=== PATIENT | male | born 1995 | race Caucasian/White ===

== ENCOUNTER → 2016-10-04 | Outpatient (CLI) | payer OTHER ==
--- NOTE | 2016-10-04 07:59 | MR ---
EXAMINATION TYPE: MR brain wo/w con DATE OF EXAM: 10/04/2016 COMPARISON: CT brain February 05, 2015. HISTORY: other amnesia per order. Multiple sclerosis per patient. TECHNIQUE: Multiplanar, multisequence images of the brain and brainstem is performed without and with IV contras t, utilizing 18 mL intravenous MultiHance gadolinium contrast is administered intravenously. Demyeli nating disease protocol with additional Sagittal Flair sequence performed. FINDINGS: T2 Lesions Present : No Approximate Number of Lesions: N/A Locations Identified : N/A Size of Reference Lesion(s): N/A Enhancing Lesion(s) Present: N/A T1 Hypointense Lesion(s) Present: N/A Diffusion weighted images demonstrate no evidence of a recent infarct or other diffusion abnormality. There is no worrisome extra-axial fluid collection. The ventricular system and cisternal spaces ar e normal in size and appearance. The brain volume is age appropriate. Midline structures demonstrate normal morphology. The craniocervical junction appears within normal limits. Post contrast images demonstrate no abnormal enhancement. The dural venous sinuses appear pa tent. The visualized sinuses are clear and the globes are intact. IMPRESSION: Unremarkable study. No significant finding is seen to account for patient's symptoms.
== END | disposition home or self-care (01) ==
LOC: RADMRIMAIN 06:03
PROVIDERS: ATTEND Family Medicine
DX: R41.3 Other amnesia (principal)
CPT/HCPCS: 70553; A9577

== ENCOUNTER 2017-05-05 23:49 | Emergency (ER) | payer OTHER ==
[2017-05-05 23:54] VITALS: RESP 18
--- NOTE | 2017-05-06 00:55 | XR ---
EXAMINATION TYPE: XR chest 2V DATE OF EXAM: 05/06/2017 COMPARISON: 05/28/2014 HISTORY: Sore throat. Cough. TECHNIQUE: Frontal and lateral views of the chest are obtained. FINDINGS: Heart and mediastinum are normal. Lungs are clear. Diaphragm is normal. Bony thorax appear s normal. IMPRESSION: Normal chest. No change.
--- NOTE | 2017-05-06 01:19 | ED ---
ENT HPI - General Chief complaint: ENT Stated complaint: Sore Throat Time Seen by Provider: 05/06/17 00:08 Source: patient Mode of arrival: ambulatory Limitations: no limitations - History of Present Illness Initial comments: 22-year-old male patient presents to the emergency department today for evaluation of sore throat and cough 1 week. He states that his symptoms started 7 days ago and are not improving. He denies taking any medications for his symptoms. He denies any sick contacts. He denies any fevers or chills with this. He states that he has had frequent sore throats in the past. Patient denies any recent rash, fever, chills, shortness breath, chest pain, abdominal pain, nausea, vomiting, diarrhea, constipation, back pain, numbness, tingling, dizziness, weakness, hematuria, dysuria, urinary urgency, urinary frequency, headache, visual changes, or any other complaints. - Related Data Previous Rx's Medication Instructions Recorded Hydrocortisone Oint 1 applic TOPICAL BID #28.4 10/28/15 [Hydrocortisone 1% Oint] oint...g. Allergies Allergy/AdvReac Type Severity Reaction Status Date / Time ibuprofen Allergy Unknown Verified 05/05/17 23:54 lactose Allergy Unknown Verified 05/05/17 23:54 codeine AdvReac Nausea & Verified 10/28/15 16:06 Vomiting Review of Systems ROS Statement: Those systems with pertinent positive or pertinent negative responses have been documented in the HPI. ROS Other: All systems not noted in ROS Statement are negative. Past Medical History Past Medical History: No Reported History Additional Past Medical History / Comment(s): BONE PAIN History of Any Multi-Drug Resistant Organisms: None Reported Past Surgical History: Ear Surgery Additional Past Surgical History / Comment(s): ear tubes Past Psychological History: ADD/ADHD, Anxiety, Depression Smoking Status: Former smoker Past Alcohol Use History: Occasional Past Drug Use History: None Reported General Exam Limitations: no limitations General appearance: alert, in no apparent distress, other (Physical well- developed, well-nourished adult male patient in no acute distress. Vital signs upon presentation are temperature 99.1F, pulse 99, respirations 18, blood pressure 141/92, pulse ox 99% on room air.) Eye exam: Present: normal appearance, PERRL, EOMI. Absent: scleral icterus, conjunctival injection, periorbital swelling ENT exam: Present: normal exam, mucous membranes moist, TM's normal bilaterally. Absent: normal oropharynx (Pharyngeal erythema. No tonsillar hypertrophy or exudate.) Neck exam: Present: normal inspection. Absent: tenderness, meningismus, lymphadenopathy Respiratory exam: Present: normal lung sounds bilaterally. Absent: respiratory distress, wheezes, rales, rhonchi, stridor Cardiovascular Exam: Present: regular rate, normal rhythm, normal heart sounds. Absent: systolic murmur, diastolic murmur, rubs, gallop, clicks GI/Abdominal exam: Present: soft, normal bowel sounds. Absent: distended, tenderness, guarding, rebound, rigid Neurological exam: Present: alert, oriented X3, CN II-XII intact Psychiatric exam: Present: normal affect, normal mood Skin exam: Present: warm, dry, intact, normal color. Absent: rash Course Vital Signs 05/05/17 05/06/17 23:51 01:26 Temperature 99.1 F 97.5 F L Pulse Rate 99 67 Respiratory 18 18 Rate Blood Pressure 141/92 133/72 O2 Sat by Pulse 99 98 Oximetry Medical Decision Making - Medical Decision Making 22-year-old male patient presented to the emergency department today for evaluation of cough and sore throat. Physical examination did reveal pharyngeal erythema however there is no tonsillar hypertrophy or exudate. No lymphadenopathy was noted. Patient is afebrile. Chest x-ray is clear for any acute cardiopulmonary process. Strep screen was negative. We'll discharge patient home at this time with instructions to take Tylenol for pain control. He is instructed to take [id number] decongestants. He instructed to follow-up with his primary care physician for recheck in 1-2 days. He is instructed to return here immediately for any new, worsening, or concerning symptoms. He verbalizes understanding and agrees with this plan. - Lab Data Lab Results 05/06/17 Range/Units 00:40 Group A Strep Rapid Negative (Negative) - Radiology Data Radiology results: report reviewed, image reviewed Two-view x-ray of the chest shows a heart and mediastinum are normal. Lungs are clear. Diaphragm is normal. Bony thorax appears normal. Impression by Dr. Lozoya shows normal chest with no change. Disposition Clinical Impression: Upper respiratory infection Disposition: HOME SELF-CARE Condition: Good Instructions: Upper Respiratory Infection (ED) Additional Instructions: Take over the counter decongestants to help dry up secretions. Take Tylenol for pain control. Increase fluids. Follow-up with your doctor for recheck in 1 -2 days. Return here immediately for any new, worsening, or concerning symptoms. Referrals: César Rick DO [Primary Care Provider] - 1-2 days Time of Disposition: 01:18
[2017-05-06 01:28] VITALS: BP 133/72; PULSE 67; TEMP 97.5
== END 2017-05-06 01:26 | disposition home or self-care (01) ==
LOC: EC 23:49
DX: J06.9 Acute upper respiratory infection, unspecified (principal); Z87.891 Personal history of nicotine dependence; Z88.5 Allergy status to narcotic agent; Z88.6 Allergy status to analgesic agent; Z91.011 Allergy to milk products
CPT/HCPCS: 71046; 87081; 87430; 99283

== ENCOUNTER 2017-10-10 22:08 | Emergency (ER) | payer BC, OTHER ==
[2017-10-10 22:23] VITALS: BP 144/81; PULSE 91; RESP 20; TEMP 99
[2017-10-10] MEDS ORDERED: DIPH,PERTUS(ACELL)TETVAC-LF 0.5 ML VIAL IM ONE (22:54)
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
== END 2017-10-10 23:16 | disposition home or self-care (01) ==
LOC: EC 22:08
DX: S50.311A Abrasion of right elbow, initial encounter (principal); S80.211A Abrasion, right knee, initial encounter; S90.511A Abrasion, right ankle, initial encounter; V19.9XXA Pedal cyclist (driver) (passenger) injured in unspecified traffic accident, initial encounter; Y93.55 Activity, bike riding; Y92.89 Other specified places as the place of occurrence of the external cause; Z23 Encounter for immunization; Z87.891 Personal history of nicotine dependence; Z88.5 Allergy status to narcotic agent; Z88.6 Allergy status to analgesic agent; Z88.8 Allergy status to other drugs, medicaments and biological substances
CPT/HCPCS: 90471; 90715; 99283

== ENCOUNTER 2018-03-30 12:53 | Emergency (ER) | payer BC, OTHER ==
[2018-03-30 15:23] VITALS: TEMP 98.3
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
[2018-03-30] MEDS ORDERED: cefTRIAXone 1,000 MG VIAL (IM USE) IM STA (16:38)
[2018-03-30] MEDS ORDERED: AZITHROMYCIN 500 MG TAB PO STA (16:38)
[2018-03-30 17:08] LABS: Appearance,Urine Clear (Clear); Bilirubin,Urine Negative (Negative); Blood,Urine Negative (Negative); Color,Urine Yellow; Glucose,Urine (UA) Negative (Negative); Ketones,Urine Negative (Negative); Leukocyte Esterase,Urine Negative (Negative); Nitrite,Urine Negative (Negative); Protein,Urine Negative (Negative); Specific Gravity,Urine 1.017 (1.001-1.035); Urobilinogen,Urine <2.0 mg/dL (<2.0)
[2018-03-30 17:45] VITALS: BP 140/85; PULSE 80; RESP 18
[2018-04-01 12:49] LABS: C. trachomatis,PCR Negative (Neg,Equiv); Chlamydia trachomatis Source Urine; N. gonorrhoeae,PCR Negative (Neg,Equiv); Neisseria Source Urine
== END 2018-03-30 17:44 | disposition home or self-care (01) ==
LOC: EC 12:53
DX: J02.9 Acute pharyngitis, unspecified (principal); Z87.891 Personal history of nicotine dependence; Z53.29 Procedure and treatment not carried out because of patient's decision for other reasons; Z79.899 Other long term (current) drug therapy; Z88.6 Allergy status to analgesic agent; Z91.011 Allergy to milk products; Z88.5 Allergy status to narcotic agent
CPT/HCPCS: 99283; 96372; 36415; 86308; 81003; 87491; 87591; 87081; 87430; J0696

== ENCOUNTER → 2020-11-11 | Outpatient (CLI) | payer SELFPAY ==
--- NOTE | 2020-11-12 10:28 | XR ---
EXAMINATION TYPE: XR chest 2V DATE OF EXAM: 11/11/2020 COMPARISON: May 06, 2017 HISTORY: Chest pain TECHNIQUE: Frontal and lateral views of the chest are obtained. FINDINGS: There is no focal air space opacity. No evidence for pneumothorax. No pleural effusion. The cardiac silhouette size is within normal limits. The osseous structures are grossly intact. IMPRESSION: 1. No acute cardiopulmonary process.
== END | disposition home or self-care (01) ==
LOC: RADXRMAIN 12:41
PROVIDERS: ATTEND Family Medicine
DX: R05 Cough (principal)
CPT/HCPCS: 71046